=== PATIENT | male | born 1995 | race Caucasian/White ===

== ENCOUNTER 2023-07-09 15:34 | Emergency (ER) | payer OTHER ==
[2023-07-09 15:55] VITALS: BP 169/100; O2SAT 100
[2023-07-09 16:38] LABS: BASOPHILS # (AUTO) 0.1 10^3/uL (0.0-0.1); BASOPHILS % (AUTO) 0.9 %; EOSINOPHILS # (AUTO) 0.1 10^3/uL (0.0-0.7); EOSINOPHILS % (AUTO) 1.4 %; HCT - HEMATOCRIT 45.7 % (42.0-52.0); HGB - HEMOGLOBIN 15.7 g/dL (14.0-18.0); LYMPHOCYTES # (AUTO) 2.3 10^3/uL (1.5-3.5); LYMPHOCYTES % (AUTO) 30.4 %; MEAN CORPUSCULAR HEMOGLOBIN 30.4 pg (27.0-31.0); MEAN CORPUSCULAR HGB CONC 34.4 g/dL (32.0-36.0); MEAN CORPUSCULAR VOLUME 88.6 fL (80.0-94.0); MEAN PLATELET VOLUME 9.6 fL (7.4-11.4); MONOCYTES # (AUTO) 0.4 10^3/uL (0.0-1.0); MONOCYTES % (AUTO) 5.4 %; NEUTROPHILS # (AUTO) 4.7 10^3/uL (1.5-6.6); NEUTROPHILS % (AUTO) 61.6 %; PLT - PLATELET COUNT 253 10^3/uL (130-450); RED BLOOD COUNT 5.16 10^6/uL (4.70-6.10); RED CELL DISTRIBUTION WIDTH 11.4 % (12.0-15.0); WHITE BLOOD COUNT 7.6 x10^3/uL (4.8-10.8)
[2023-07-09 16:52] LABS: ALBUMIN 4.7 g/dL (3.2-5.5); ALBUMIN/GLOBULIN RATIO 1.6 (1.0-2.2); BILIRUBIN,TOTAL 0.9 mg/dL (0.2-1.0); CALCIUM 9.7 mg/dL (8.5-10.3); CREATININE 0.9 mg/dL (0.6-1.3); POTASSIUM 3.7 mmol/L (3.5-4.5); TOTAL PROTEIN 7.6 g/dL (6.4-8.9)
[2023-07-09 17:00] LABS: TROPONIN I HIGH SENSITIVITY 2.3 ng/L (2.3-19.7)
--- NOTE | 2023-07-09 17:04 | XRAY Report ---
PROCEDURE: Chest 1V INDICATIONS: Chest Pain TECHNIQUE: One view of the chest was acquired. COMPARISON: None. FINDINGS: Surgical changes and devices: None. Lungs and pleura: No pleural effusions or pneumothorax. Lungs are clear. Mediastinum: Mediastinal contours appear normal. Heart size is normal. Bones and chest wall: No suspicious bony lesions. Overlying soft tissues appear unremarkable. IMPRESSION: No acute cardiopulmonary process. Source of chest pain is not seen. Reviewed by: Trav Muhammad MD on 07/09/2023 5:02 PM [facility] Approved by: Trav Muhammad MD on 07/09/2023 5:02 PM [facility] Station ID: [id number]
--- NOTE | 2023-07-09 18:02 | ED Physician Documentation ---
History of Present Illness - Stated complaint Stated Complaint: CHEST PX - Chief complaint Chief Complaint: General - History obtained from History obtained from: Patient - History of Present Illness Timing: How many days ago (3) Pain level max: 3 Pain level now: 2 - Additonal information Additional information: Patient is a 27-year-old male who complains of chest pain on the left side constant for 3 days. Worse with movement and palpation. Nothing makes it better. No pain with deep breathing. 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 No history of blood clots. No history of coagulation disorders in the family. No history of young cardiac . Does not currently have a PCP. No fevers. No chills. No cough. No change with exertion. No leg swelling. No recent travel. No immobilization. Review of Systems Constitutional: denies: Fever, Chills Nose: denies: Rhinorrhea / runny nose, Congestion : denies: Dysuria Skin: denies: Rash Musculoskeletal: denies: Neck pain, Back pain Neurologic: denies: Headache PD PAST MEDICAL HISTORY - Past Medical History Past Medical History: No - Past Surgical History Past Surgical History: Yes - Present Medications Home Medications: Ambulatory Orders Medication Instructions Recorded Confirmed No Known Home Medications 07/09/23 07/09/23 - Allergies Allergies/Adverse Reactions: Allergies Allergy/AdvReac Type Severity Reaction Status Date / Time No Known Drug Allergies Allergy Verified 07/09/23 15:53 - Social History Does the pt smoke?: No Smoking Status: Never smoker PD ED PE NORMAL - Vitals Vital signs reviewed: Yes - General General: Alert and oriented X 3, No acute distress - HEENT HEENT: PERRL, Moist mucous membranes - Neck Neck: Supple, no meningeal sign, No bony TTP - Cardiac Cardiac: RRR, No murmur, No gallop, No rub, Strong equal pulses, Other (Tender to palpation over the left anterior chest wall, reproduces his pain. No crepitus. 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 Relevant findings are: Rate: Rate (enter#) (73) Rhythm: NSR [place]: Normal Intervals: Normal NH QRS: Normal Ischemia: Normal ST segments - Labs Labs: Laboratory Tests 07/09/23 07/09/23 16:24 16:24 WBC 7.6 RBC 5.16 Hgb 15.7 Hct 45.7 MCV 88.6 MCH 30.4 MCHC 34.4 RDW 11.4 L Plt Count 253 MPV 9.6 Neut # (Auto) 4.7 Lymph # (Auto) 2.3 [place] # (Auto) 0.4 Eos # (Auto) 0.1 Baso # (Auto) 0.1 Absolute Nucleated RBC 0.00 Nucleated RBC % 0.0 Sodium 140 Potassium 3.7 Chloride 103 Carbon Dioxide 28 Anion Gap 9.0 BUN 12 Creatinine 0.9 Estimated GFR (MDRD) 102 Glucose 90 Calcium 9.7 Total Bilirubin 0.9 AST 45 H ALT 97 H Alkaline Phosphatase 65 Troponin I High Sens 2.3 Total Protein 7.6 Albumin 4.7 Globulin 2.9 Albumin/Globulin Ratio 1.6 Lipase 25 - Rads (name of study) cxr Relevant Findings:: Final report received, See rad report PD Medical Decision Making - ED course Complexity details: reviewed results, re-evaluated patient, considered differential (No ST elevation NC, no aortic dissection, no PE, no tension pneumothorax, no aortic aneurysm), d/w patient ED course: Patient with left anterior chest wall pain, reproducible with palpation and movement. We will continue supportive care at home. Negative troponin after 3 days of symptoms. No acute findings on EKG, chest x-ray. No evidence of DVT, PE. No evidence of aortic dissection. No tachycardia or hypoxia. Will utilize Motrin and Tylenol as needed for pain and have him follow-up with his PCP for further care. He also gets tingling in his arms when he is working, possible early thoracic outlet syndrome, recommend physical therapy and follow-up with his PCP. Patient counseled regarding signs and symptoms for which I believe and urgent re-evaluation would be necessary. Patient with good understanding of and agreement to plan and is comfortable going home at this time This document was made in part using voice recognition software. While efforts are made to proofread this document, sound alike and grammatical errors may occur. Departure - Departure Disposition: 01 Home, Self Care Clinical Impression: Chest wall pain Condition: Good Instructions: ED Chest Pain Costochondritis Follow-Up: [facility] [Provider Group] [facility] [Provider Group] [facility] [Provider Group] Comments: Your chest x-ray, EKG and laboratory studies do not show any acute abnormalities today. Please follow-up with your doctor for further care. Please return if ou worsen. This should improve over the next few days. I would recommend Motrin and Tylenol as needed for any pain. As we discussed madi can often develop thoracic outlet syndrome, this is usually treated with physical therapy but may cause tingling and pain in the arms. Forms: PCP List Discharge Date/Time: 07/09/23 18:05
== END 2023-07-09 18:05 | disposition home or self-care (01) ==
LOC: ED 15:34
DX: R07.89 Other chest pain (principal); R20.2 Paresthesia of skin
CPT/HCPCS: 36415; 80053; 83690; 84484; 85025; 93005; 99283; 99284